=== PATIENT | female | born 1980 | race African-American/Black ===

== ENCOUNTER 2018-04-30 09:30 | Emergency (ER) | payer OTHER | END 2018-04-30 10:38 | disposition home or self-care (01) | LOC: ER 10:38 | DX: S16.1XXA Strain of muscle, fascia and tendon at neck level, initial encounter (principal); M25.512 Pain in left shoulder; V49.49XA Driver injured in collision with other motor vehicles in traffic accident, initial encounter; Y93.89 Activity, other specified; Y99.8 Other external cause status; Y92.89 Other specified places as the place of occurrence of the external cause | CPT/HCPCS: 99283 ==

== ENCOUNTER 2019-03-26 17:40 | Emergency (ER) | payer OTHER ==
[~2019-03-26] VITALS: Ht 157.5 cm; Wt 57.2 kg
[~2019-03-26 17:40] MED LIST: CYCL10TA2 PO; METH4TAB2 PO; NAPR500T8 PO
[2019-03-26 18:06] VITALS: BP 124/49
[2019-03-26] MEDS ORDERED: HYDR-3164 PO (18:33)
[2019-03-26] MEDS ORDERED: HYDROcodone/APAP 5/325MG 1 TAB TABLET PO ONE (18:45)
[2019-03-26 20:07] LABS: BILIRUBIN,URINE NEGATIVE (NEG); CLARITY,URINE CLEAR; COLOR,URINE YELLOW; NITRITE,URINE NEGATIVE (NEG); PROTEIN,URINE NEGATIVE (NEG-TRACE); UROBILINOGEN,URINE 0.2 mg/dL (0.2 mg/dL)
[2019-03-26 20:16] LABS: BACTERIA,URINE MODERATE /HPF (0-FEW); RBC,URINE 0 /HPF (0-2); SQUAMOUS EPITHELIAL CELL,UR MANY /LPF; TRICHOMONAS,URINE PRESENT
--- NOTE | 2019-03-27 04:45 | PHYS DOC ---
Past Medical History Past Medical History: Diabetes-Type II Past Surgical History: No Surgical History Alcohol Use: None Drug Use: None Adult General Chief Complaint Chief Complaint: BACK PAIN - NO INJURY HPI HPI Patient is a 38 year old female presents with low back pain. She's had for a few days it is worse now is mostly in the mid back it radiates around to the right groin region and down to her right posterior knee area sometimes feels it down into her calf as well no trauma has had issues with back pain for over a year now but seemed to get worse over the last few days no dysuria denies abdominal pain. Denies fever by history. Denies drug use Review of Systems Review of Systems Constitutional: Denies fever or chills [] Eyes: Denies change in visual acuity, redness, or eye pain [] HENT: Denies nasal congestion or sore throat [] Respiratory: Denies cough or shortness of breath [] Cardiovascular: No additional information not addressed in HPI [] GI: Denies abdominal pain, nausea, vomiting, bloody stools or diarrhea [] Neurologic: Denies headache, focal weakness or sensory changes [] Endocrine: Denies polyuria or polydipsia [] All other systems were reviewed and found to be within normal limits, except as documented in this note. Current Medications Current Medications Current Medications Medications (Trade) Dose Ordered Sig/Rasheed Start Time Stop Time Status Last Admin Dose Admin Acetaminophen/ Hydrocodone Bitart (Lortab 5/325) 1 tab 1X ONCE 03/26/19 18:45 03/26/19 18:46 DC 03/26/19 18:37 1 TAB Allergies Allergies Allergies Coded Allergies Type Severity Reaction Last Updated Verified No Known Drug Allergies 04/30/18 No Physical Exam Physical Exam Constitutional: Well developed, well nourished, no acute distress, non-toxic appearance. [] HENT: Normocephalic, atraumatic, bilateral external ears normal, oropharynx moist, no oral exudates, nose normal. [] Eyes: PERRLA, EOMI, conjunctiva normal, no discharge. [] Neck: Normal range of motion, no tenderness, supple, no stridor. [] Pulmonary: Normal respiratory effort no increased work of breathing no obvious chest wall trauma Abdomen: Bowel sounds normal, soft, no tenderness, no masses, no pulsatile masses. [] Skin: Warm, dry, no erythema, no rash. [] Back: There is tenderness to palpation in the mid back and a diffuse sort of bandlike pattern around L5-S1 no focal midline bony tenderness, diffuse overall. Extremities: No tenderness, no cyanosis, no clubbing, ROM intact, no edema. [] Neurologic: Alert and oriented X 3, normal motor function, normal sensory function, no focal deficits noted. [] Psychologic: Affect normal, judgement normal, mood normal. [] Current Patient Data Vital Signs Vital Signs Date Time Temp Pulse Resp B/P (MAP) Pulse Ox O2 Delivery O2 Flow Rate FiO2 03/26/19 18:06 100.9 84 16 124/49 (74) 98 Room Air 100.9 Lab Values Laboratory Tests Test 03/26/19 19:00 03/26/19 19:03 Urine Collection Type Clean catch Urine Color Yellow Urine Clarity Clear Urine pH 6.0 Urine Specific [place] 1.015 Urine Protein Negative mg/dL (NEG-TRACE) Urine Glucose (UA) Negative mg/dL (NEG) Urine Ketones (Stick) Negative mg/dL (NEG) Urine Blood Negative (NEG) Urine Nitrite Negative (NEG) Urine Bilirubin Negative (NEG) Urine Urobilinogen Dipstick 0.2 mg/dL (0.2 mg/dL) Urine Leukocyte Esterase Moderate (NEG) Urine RBC 0 /HPF (0-2) Urine WBC 5-10 /HPF (0-4) Urine Squamous Epithelial Cells Many /LPF Urine Bacteria Moderate /HPF (0-FEW) Urine Mucus Marked /LPF Urine Trichomonas Present POC Urine HCG, Qualitative Hcg negative (Negative) Microbiology 03/26/19 Urine Culture - Final, Complete 03/26/19 Urine Culture Result 1 (SHMUEL) - Final, Complete EKG EKG [] Radiology/Procedures Radiology/Procedures [] Course & Med Decision Making Course & Med Decision Making Pertinent Labs and Imaging studies reviewed. (See chart for details) []38-year-old female not presenting with low back pain, noted fever as well. Most likely musculoskeletal as there is radiation down the right posterior thigh and also reproducibility on examination clinically. NO SIGNS of cauda equina. Patient noted to have Trichomonas and possible UTI on urinalysis that actually resulted after she left the department. i also later noted the fever on full review of patients chart, she had unfortunately left the department at that time. I called the patient at 10 PM and i asked her to call me back in the emergency room. As of this dictation at 4:40 AM she has not called back. I have asked the nurse manager retention deyvi to call this patient back preferably for re- evaluation. Lyndaon Disclaimer Lyndaon Disclaimer This electronic medical record was generated, in whole or in part, using a voice recognition dictation system. Departure Departure Impression: Primary Impression: Back pain Disposition: HOME, SELF-CARE Condition: STABLE Patient Instructions: Back Pain, Adult, [id number] Scripts Hydrocodone/Apap 5-325 (NORCO 5-325 TABLET) 1 Each Tablet 1-2 EACH PO PRN Q6HRS PRN for PAIN, #8 as needed for pain Prov: YAMIL COURTNEY MD 03/26/19 YAMIL COURTNEY MD March 27, 2019 04:45
[2019-04-24] MEDS ORDERED: SENN-87 PO (08:14)
== END 2019-03-26 19:15 | disposition home or self-care (01) ==
LOC: ER 17:40
DX: M54.5 Low back pain (principal); E11.9 Type 2 diabetes mellitus without complications
CPT/HCPCS: 81001; 81025; 87086; 99284

== ENCOUNTER 2019-04-13 15:15 | Emergency (ER) | payer OTHER ==
[~2019-04-13] VITALS: Ht 157.5 cm; Wt 56.7 kg
[~2019-04-13 15:15] MED LIST changes: +HYDR-3164 PO
[2019-04-13 15:25] VITALS: BP 144/83
[2019-04-13] MEDS ORDERED: DIAZ5TAB PO (15:39)
[2019-04-13] MEDS ORDERED: DICL50TA2 PO (15:39)
--- NOTE | 2019-04-13 15:40 | PHYS DOC ---
Past Medical History Past Medical History: Diabetes-Type II Past Surgical History: No Surgical History Alcohol Use: None Drug Use: None Adult General Chief Complaint Chief Complaint: LOWER EXT PAIN HPI HPI Patient is a 38 year old female who presents to the ED today complaining of 10 out of 10 right low back pain radiating to the right lower extremity that has been going on intermittently for 1 month with spasms to the low back. Patient denies any known injury. She states occasionally she gets this numbness on the right toes. Patient denies any loss of bowel bladder function. Denies any chance she is . She states she has an appointment with her own doctor tomorrow morning. Patient states her pain is worsened when she is sitting on her buttocks. She states standing up sometimes relieves the pain. Review of Systems Review of Systems Constitutional: Denies fever or chills [] GI: Denies abdominal pain, nausea, vomiting, bloody stools or diarrhea [] : Denies dysuria or hematuria [] Musculoskeletal: Reports right low back pain radiating to the right lower extremity. Integument: Denies rash or skin lesions [] Neurologic: Denies headache, focal weakness or sensory changes [] All other systems were reviewed and found to be within normal limits, except as documented in this note. Allergies Allergies Allergies Coded Allergies Type Severity Reaction Last Updated Verified No Known Drug Allergies 04/30/18 No Physical Exam Physical Exam Constitutional: Well developed, well nourished, no acute distress, non-toxic appearance. [] HENT: Normocephalic, atraumatic, bilateral external ears normal, oropharynx moist, no oral exudates, nose normal. [] Eyes: PERRLA, EOMI, conjunctiva normal, no discharge. [] Neck: Normal range of motion, no tenderness, supple, no stridor. [] Cardiovascular:Heart rate regular rhythm, no murmur [] Lungs & Thorax: Bilateral breath sounds clear to auscultation [] Abdomen: Bowel sounds normal, soft, no tenderness, no masses, no pulsatile masses. [] Skin: Warm, dry, no erythema, no rash. [] Back: Tenderness on palpation of the right lumbar spine worse on the right SI joint, no midline lumbar spine tenderness, no CVA tenderness. Positive straight leg raises to bilateral lower extremities at approximately 45 worse on the right side. Extremities: No tenderness, no cyanosis, no clubbing, ROM intact, no edema. [] Neurologic: Alert and oriented X 3, normal motor function, normal sensory function, no focal deficits noted. [] Psychologic: Affect normal, judgement normal, mood normal. [] EKG EKG [] Radiology/Procedures Radiology/Procedures [] Course & Med Decision Making Course & Med Decision Making Pertinent Labs and Imaging studies reviewed. (See chart for details) This is a 38-year-old female patient with known history of sciatica presented to the ED today with physical exam consistent of sciatica. No known injury. No cauda equina syndrome symptoms. Patient has an appointment with her PCP tomorrow morning. Will be given Toradol and Solu-Medrol IM in the ED. Will be discharged with Valium and naproxen. Follow-up with PCP tomorrow morning. Dragon Disclaimer Dragon Disclaimer This electronic medical record was generated, in whole or in part, using a voice recognition dictation system. Departure Departure Impression: Primary Impression: Back pain Additional Impression: Sciatica of right side Disposition: 01 HOME, SELF-CARE Condition: STABLE Referrals: DAVE ESPINOSA MD (PCP) Follow-up tomorrow as scheduled Patient Instructions: Back Pain, Adult, Sciatica Additional Instructions: You were evaluated in the emergency room for low back pain with sciatica. Take the prescribed medications as ordered. Follow-up with your doctor tomorrow as scheduled. Scripts Diazepam (VALIUM) 5 Mg Tablet 5 MG PO TID, #9 TAB Prov: MONTRELL TOBAR APRN 04/13/19 Diclofenac Potassium (DICLOFENAC POTASSIUM) 50 Mg Tablet 1 TAB PO BID, #20 TAB 0 Refills Prov: MONTRELL TOBAR APRN 04/13/19 Problem Qualifiers Primary Impression: Back pain Back pain location: low back pain Chronicity: chronic Back pain latera lity: right Sciatica presence: with sciatica Sciatica laterality: sciat ica of right side Qualified Codes: M54.41 - Lumbago with sciatica, right side; G89.29 - Other chronic pain MONTRELL TOBAR APRN April 13, 2019 15:40
[2019-04-13] MEDS ORDERED: methylPREDNISolone SOD SUCC PF 125 MG/2 ML VIAL. IM ONE (15:45)
[2019-04-13] MEDS ORDERED: KETOROLAC 60 MG/2 ML VIAL. IM ONE (15:45)
[2019-04-24] MEDS ORDERED: SENN-87 PO (08:14)
== END 2019-04-13 16:00 | disposition home or self-care (01) ==
LOC: ER 15:15
DX: M54.41 Lumbago with sciatica, right side (principal); G89.29 Other chronic pain; E11.9 Type 2 diabetes mellitus without complications
CPT/HCPCS: 96372; 99284; J1885; J2930

== ENCOUNTER 2019-04-21 11:56 | Inpatient (IN) | payer OTHER ==
[~2019-04-21] VITALS: Ht 157.5 cm; Wt 53.1 kg
[~2019-04-21 11:56] MED LIST changes: +DIAZ5TAB PO; +DICL50TA2 PO
[2019-04-21] MEDS ORDERED: KETOROLAC 30 MG/ML VIAL. IV ONE (12:45)
--- NOTE | 2019-04-21 12:49 | PHYS DOC ---
Past Medical History Past Medical History: Diabetes-Type II, Other Additional Past Medical Histor: SICKLE CELL TRAIT Past Surgical History: No Surgical History Alcohol Use: None Drug Use: None Adult General Chief Complaint Chief Complaint: LOWER BACK PAIN OR INJURY [facility] Patient is a 38 year old female who presents with complaining of low back pain. Patient complaining of constant low back pain for the last one month without injury as a sharp pain with radiation to the posterior right thigh and associated with numbness in lateral side of leg. Patient states the pain getting worse with movement and bending over. Patient denies focal weakness, fever and chills, urinary symptoms, abdominal pain, vaginal bleeding or discharge or . The patient was seen twice in this emergency room and by her primary care physician without improvement of her pain patient seen by her doctor today and sent to ER for admission. Review of Systems Review of Systems Constitutional: Denies fever or chills [] Eyes: Denies change in visual acuity, redness, or eye pain [] HENT: Denies nasal congestion or sore throat [] Respiratory: Denies cough or shortness of breath [] Cardiovascular: No additional information not addressed in HPI [] GI: Denies abdominal pain, nausea, vomiting, bloody stools or diarrhea [] : Denies dysuria or hematuria [] Musculoskeletal: Reports back pain, denies joint pain [] Integument: Denies rash or skin lesions [] Neurologic: Denies headache, focal weakness or sensory changes [] Endocrine: Denies polyuria or polydipsia [] All other systems were reviewed and found to be within normal limits, except as documented in this note. Allergies Allergies Allergies Coded Allergies Type Severity Reaction Last Updated Verified No Known Drug Allergies 04/30/18 No Physical Exam Physical Exam Constitutional: Well developed, well nourished, mild, non-toxic appearance. [] HENT: Normocephalic, atraumatic. Eyes: PERRLA, EOMI, conjunctiva normal, no discharge. [] Neck: Normal range of motion, no tenderness, supple, no stridor. [] Cardiovascular:Heart rate regular rhythm, no murmur [] Lungs & Thorax: Bilateral breath sounds clear to auscultation [] Abdomen: Bowel sounds normal, soft, no tenderness, no masses, no pulsatile masses. [] Skin: Warm, dry, no erythema, no rash. [] Back: No midline tenderness, right paraspinal muscle spasm, no CVA tenderness. [] Extremities: No tenderness, no cyanosis, no clubbing, ROM intact, no edema. [] Neurologic: Alert and oriented X 3, normal motor function, decrease of sensation in lateral side of right lower leg, no focal deficits noted. [] Psychologic: Affect normal, judgement normal, mood normal. [] EKG EKG [] Radiology/Procedures Radiology/Procedures [facility] [address] [place] [address] IMAGING REPORT Signed PATIENT: ISIDRA PATRICK ACCOUNT: [id number] : 1980 LOCATION: [address] [place] [address] AGE: 38 SEX: F EXAM STATUS: ADM IN ORD. PHYSICIAN: ANTONI WALDEN MD REASON: low back pain PROCEDURE: CT LUMBAR SPINE WO CONTRAST CT LUMBAR SPINE WO CONTRAST Indication: Low back pain Technique: Noncontrast CT imaging was performed of the , multiplanar reconstruction images submitted. One or more of the following individualized dose reduction techniques were utilized for this examination: 1. Automated exposure control 2. Adjustment of the mA and/or kV according to patient size 3. Use of iterative reconstruction technique. Comparison: None Findings: Lumbar vertebral body stature and AP alignment are maintained. Intervertebral disc spaces are adequate. No acute lumbar spine fracture is identified. There is protrusion and possible small extrusion extending slightly below the L5-S1 intervertebral disc space in the right lateral recess estimated about 4 to 5 mm AP with contact of the descending right S1 nerve root. Neural foramina are not significantly narrowed. IMPRESSION: 1. No acute lumbar spine fracture is identified. 2. There is protrusion and possible small extrusion eccentric to the right lateral recess at L5-S1 contacting the descending right S1 nerve root. Electronically signed by: Nimisha Wolfe MD (04/21/2019 4:22 PM) [id number] DICTATED and SIGNED BY: NIMISHA WOLFE MD DATE: 04/21/19 1628 Course & Med Decision Making Course & Med Decision Making Pertinent Labs and Imaging studies reviewed. (See chart for details) Patient requiring admission for further evaluation and treatment. Discussed with Dr. Falcon who is in agreement with admission. Discussed findings and plan with patient and family, who acknowledge understanding and agreement. Dragon Disclaimer Dragon Disclaimer This electronic medical record was generated, in whole or in part, using a voice recognition dictation system. Departure Departure Impression: Primary Impression: Sciatica of right side Disposition: 09 ADMITTED INPATIENT Admitting Physician: Karsten Falcon Condition: IMPROVED Referrals: KARSTEN FALCON MD (PCP) ANTONI WALDEN MD April 21, 2019 12:48
[2019-04-21 12:55] LABS: BILIRUBIN,URINE NEGATIVE (NEG); CLARITY,URINE CLEAR; COLOR,URINE YELLOW; NITRITE,URINE NEGATIVE (NEG); PH,URINE 5.5; PROTEIN,URINE NEGATIVE (NEG-TRACE); UROBILINOGEN,URINE 0.2 mg/dL (0.2 mg/dL)
[2019-04-21 13:13] LABS: HYALINE CASTS, URINE MODERATE /HPF; SQUAMOUS EPITHELIAL CELL,UR MANY /LPF
[2019-04-21 13:14] LABS: BACTERIA,URINE MODERATE /HPF (0-FEW); RBC,URINE 0 /HPF (0-2)
[2019-04-21 13:15] LABS: BASO % 0 % (0-3); EOS % 0 % (0-3); HEMATOCRIT 37.4 % (36.0-47.0); HEMOGLOBIN 11.9 g/dL (12.0-15.5); LYMPH # 1.4 x10^3/uL (1.0-4.8); LYMPH % 8 % (24-48); MEAN CORPUSCULAR HEMOGLOBIN 24 pg (25-35); MEAN CORPUSCULAR HGB CONC 32 g/dL (31-37); MEAN CORPUSCULAR VOLUME 75 fL (79-100); MONO # 0.8 x10^3/uL (0.0-1.1); MONO % 4 % (0-9); NEUT # 15.7 x10^3uL (1.8-7.7); NEUT % 88 % (31-73); PLATELET COUNT 417 x10^3/uL (140-400); RED BLOOD COUNT 4.96 x10^6/uL (3.50-5.40); RED CELL DISTRIBUTION WIDTH 19.2 % (11.5-14.5)
[2019-04-21 13:17] LABS: CALCIUM 9.7 mg/dL (8.5-10.1); CREATININE 0.8 mg/dL (0.6-1.0); GFR 97.1; POTASSIUM 3.5 mmol/L (3.5-5.1)
[2019-04-21 13:23] LABS: ALBUMIN 4.2 g/dL (3.4-5.0); ALBUMIN/GLOBULIN RATIO 1.1 (1.0-1.7); TOTAL BILIRUBIN 0.3 mg/dL (0.2-1.0); TOTAL PROTEIN 7.9 g/dL (6.4-8.2)
[2019-04-21 14:22] VITALS: BP 140/86
[2019-04-21] MEDS ORDERED: METF500T16 PO (14:22)
[2019-04-21 15:32] LABS: % LYMPHS 16 % (24-48); % MONOS 3 % (0-10); % SEGS 81 % (35-66)
[2019-04-21 15:34] LABS: PLT ESTIMATE ADEQUATE (ADEQUATE)
--- NOTE | 2019-04-21 16:24 | RAD ---
CT LUMBAR SPINE WO CONTRAST Indication: Low back pain Technique: Noncontrast CT imaging was performed of the , multiplanar reconstruction images submitted. One or more of the following individualized dose reduction techniques were utilized for this examination: 1. Automated exposure control 2. Adjustment of the mA and/or kV according to patient size 3. Use of iterative reconstruction technique. Comparison: None Findings: Lumbar vertebral body stature and AP alignment are maintained. Intervertebral disc spaces are adequate. No acute lumbar spine fracture is identified. There is protrusion and possible small extrusion extending slightly below the L5-S1 intervertebral disc space in the right lateral recess estimated about 4 to 5 mm AP with contact of the descending right S1 nerve root. Neural foramina are not significantly narrowed. IMPRESSION: 1. No acute lumbar spine fracture is identified. 2. There is protrusion and possible small extrusion eccentric to the right lateral recess at L5-S1 contacting the descending right S1 nerve root. Electronically signed by: Raj Wolfe MD (04/21/2019 4:22 PM) [id number]
[2019-04-21] MEDS ORDERED: SENNOSIDES 8.6 MG TABLET PO PRN (16:45)
[2019-04-21] MEDS: metFORMIN 500 MG TABLET PO SCH (17:00)
[2019-04-21] MEDS: MORPHINE SULFATE 2 MG/ML VIAL. IV PRN ×2 (17:01→21:34)
[2019-04-21 19:00] VITALS: BP 127/79
[2019-04-21] MEDS: DICLOFENAC SODIUM 25 MG TABLET.DR PO SCH (21:34)
[2019-04-21 22:29] VITALS: BP 132/86
[2019-04-22] MEDS: MORPHINE SULFATE 2 MG/ML VIAL. IV PRN ×3 (02:24→13:00)
[2019-04-22 02:51] VITALS: BP 151/89
[2019-04-22 07:00] VITALS: BP 118/82
[2019-04-22] MEDS: oxyCODONE/APAP 5/325 1 TAB TABLET PO PRN ×2 (08:21→16:45)
[2019-04-22] MEDS: CYCLOBENZAPRINE 10 MG TABLET. PO PRN (08:22)
[2019-04-22] MEDS: metFORMIN 500 MG TABLET PO SCH ×2 (08:22→17:34)
[2019-04-22] MEDS: DICLOFENAC SODIUM 25 MG TABLET.DR PO SCH ×2 (08:23→20:46)
--- NOTE | 2019-04-22 10:25 | PDOC1 ---
History and Physical Date of Admission Date of Admission 04/21/19 Identification/Chief Complaint Chief Complaint Back pain Source Source: Patient History of Present Illness History of Present Illness Pt has been to the ER minimum of 4 different times over the past month for worsening back pain. Pt states that the pain started around the 3rd week of February. No injury or inciting event that she can remember. Noticed that she had some numbness and tingling down the side of her right thigh and into her last 3 toes on the right side. When she came and saw me the week of March she thought it was getting better. Then came in last week in excruciating pain. Xrays were ordered in clinic which were normal and told to f/u this week. Pt presented to clinic yesterday accompanied by her . He stated that she lays in bed all day crying and he was very concerned. Pt having to use a cane to get around. She has weakness in the right ankle. Right groin pain for the past 3 days. Constipated Past Medical History Cardiovascular: No pertinent hx Pulmonary: No pertinent hx GI: No pertinent hx Heme/Onc: No pertinent hx Hepatobiliary: No pertinent hx Psych: No pertinent hx Rheumatologic: No pertinent hx Infectious disease: No pertinent hx ENT: No pertinent hx Renal/: No pertinent hx Endocrine: Diabetes Dermatology: No pertinent hx Past Surgical History Past Surgical History: No pertinent history Family History Family History: Diabetes, Hypertension Social History Smoke: No ALCOHOL: none Drugs: None Current Problem List Problem List Problems Medical Problems: (1) Sciatica of right side Status: Acute Current Medications Current Medications Current Medications Medications (Trade) Dose Ordered Sig/Rasheed Start Time Stop Time Status Last Admin Dose Admin Cyclobenzaprine HCl (Flexeril) 5 mg PRN TID PRN 04/21/19 16:45 04/22/19 08:22 5 MG Diclofenac Sodium (Voltaren) 50 mg BID 04/21/19 21:00 04/22/19 08:23 50 MG Ketorolac Tromethamine (Toradol 30mg Vial) 30 mg 1X ONCE 04/21/19 12:45 04/21/19 12:46 DC 04/21/19 13:17 30 MG Metformin HCl (Glucophage) 500 mg BIDWMEALS 04/21/19 17:00 04/22/19 08:22 500 MG Morphine Sulfate (Morphine Sulfate) 2 mg PRN Q2HR PRN 04/21/19 16:45 04/22/19 08:21 2 MG Oxycodone/ Acetaminophen (Percocet 5/325) 1 tab PRN Q6HRS PRN 04/21/19 16:45 04/22/19 08:21 1 TAB Sennosides (Senna) 8.6 mg PRN BID PRN 04/21/19 16:45 Allergies Allergies Allergies Coded Allergies Type Severity Reaction Last Updated Verified No Known Drug Allergies 04/30/18 No ROS Review of System CONSTITUTIONAL: No fever or chills EYES: No recent changes SKIN: No rash or itching CARDIOVASCULAR: No chest pain, syncope, palpitations, or edema RESPIRATORY: No SOB or cough GASTROINTESTINAL: No nausea, vomiting or abdominal pain, +constipation from pain medication NEUROLOGICAL: No headaches, see HPI ENDOCRINE: No cold or heat intolerance GENITOURINARY: No urgency or frequency of urination MUSCULOSKELETAL: See HPI LYMPHATICS: No enlarged lymph nodes PSYCHIATRIC: No anxiety or depression Physical Exam Physical Exam GEN.: No apparent distress. Alert and oriented. HEENT: Head is normocephalic, atraumatic NECK: Supple. LUNGS: Clear to auscultation. HEART: RRR, S1, S2 present. Peripheral pulses intact ABDOMEN: Soft, mild RLQ tenderness. Positive bowel sounds. EXTREMITIES: Without any cyanosis. NEUROLOGIC: Normal speech, normal tone PSYCHIATRIC: Normal affect, normal mood. SKIN: No ulcerations Vitals Vitals Vital Signs Date Time Temp Pulse Resp B/P (MAP) Pulse Ox O2 Delivery O2 Flow Rate FiO2 04/22/19 08:21 20 Room Air 04/22/19 07:00 97.9 86 118/82 (94) 100 97.9 Labs Labs Laboratory Tests Test 04/21/19 12:34 04/21/19 12:37 04/21/19 12:55 04/21/19 16:52 Urine Collection Type Unknown Urine Color Yellow Urine Clarity Clear Urine pH 5.5 Urine Specific [place] 1.025 Urine Protein Negative mg/dL (NEG-TRACE) Urine Glucose (UA) Negative mg/dL (NEG) Urine Ketones (Stick) Negative mg/dL (NEG) Urine Blood Negative (NEG) Urine Nitrite Negative (NEG) Urine Bilirubin Negative (NEG) Urine Urobilinogen Dipstick 0.2 mg/dL (0.2 mg/dL) Urine Leukocyte Esterase Negative (NEG) Urine RBC 0 /HPF (0-2) Urine WBC 1-4 /HPF (0-4) Urine Squamous Epithelial Cells Many /LPF Urine Bacteria Moderate /HPF (0-FEW) Urine Hyaline Casts Moderate /HPF Urine Mucus Marked /LPF Bedside Urine HCG, Qualitative Hcg negative (Negative) White Blood Count 18.0 x10^3/uL (4.0-11.0) Red Blood Count 4.96 x10^6/uL (3.50-5.40) Hemoglobin 11.9 g/dL (12.0-15.5) Hematocrit 37.4 % (36.0-47.0) Mean Corpuscular Volume 75 fL (79-100) Mean Corpuscular Hemoglobin 24 pg (25-35) Mean Corpuscular Hemoglobin Concent 32 g/dL (31-37) Red Cell Distribution Width 19.2 % (11.5-14.5) Platelet Count 417 x10^3/uL (140-400) Neutrophils (%) (Auto) 88 % (31-73) Lymphocytes (%) (Auto) 8 % (24-48) Monocytes (%) (Auto) 4 % (0-9) Eosinophils (%) (Auto) 0 % (0-3) Basophils (%) (Auto) 0 % (0-3) Neutrophils # (Auto) 15.7 x10^3uL (1.8-7.7) Lymphocytes # (Auto) 1.4 x10^3/uL (1.0-4.8) Monocytes # (Auto) 0.8 x10^3/uL (0.0-1.1) Eosinophils # (Auto) 0.0 x10^3/uL (0.0-0.7) Basophils # (Auto) 0.0 x10^3/uL (0.0-0.2) Segmented Neutrophils % 81 % (35-66) Lymphocytes % 16 % (24-48) Monocytes % 3 % (0-10) Platelet Estimate Adequate (ADEQUATE) Large Platelets Few Sodium Level 142 mmol/L (136-145) Potassium Level 3.5 mmol/L (3.5-5.1) Chloride Level 104 mmol/L (98-107) Carbon Dioxide Level 25 mmol/L (21-32) Anion Gap 13 (6-14) Blood Urea Nitrogen 15 mg/dL (7-20) Creatinine 0.8 mg/dL (0.6-1.0) Estimated GFR (Cockcroft-Gault) 97.1 BUN/Creatinine Ratio 19 (6-20) Glucose Level 142 mg/dL (70-99) Calcium Level 9.7 mg/dL (8.5-10.1) Total Bilirubin 0.3 mg/dL (0.2-1.0) Aspartate Amino Transf (AST/SGOT) 10 U/L (15-37) Alanine Aminotransferase (ALT/SGPT) 16 U/L (14-59) Alkaline Phosphatase 49 U/L (46-116) Total Protein 7.9 g/dL (6.4-8.2) Albumin 4.2 g/dL (3.4-5.0) Albumin/Globulin Ratio 1.1 (1.0-1.7) Glucose (Fingerstick) 215 mg/dL (70-99) Test 04/21/19 21:01 04/22/19 07:32 Glucose (Fingerstick) 148 mg/dL (70-99) 106 mg/dL (70-99) Laboratory Tests Test 04/21/19 12:34 04/21/19 12:37 04/21/19 12:55 04/21/19 16:52 Urine Collection Type Unknown Urine Color Yellow Urine Clarity Clear Urine pH 5.5 Urine Specific [place] 1.025 Urine Protein Negative mg/dL (NEG-TRACE) Urine Glucose (UA) Negative mg/dL (NEG) Urine Ketones (Stick) Negative mg/dL (NEG) Urine Blood Negative (NEG) Urine Nitrite Negative (NEG) Urine Bilirubin Negative (NEG) Urine Urobilinogen Dipstick 0.2 mg/dL (0.2 mg/dL) Urine Leukocyte Esterase Negative (NEG) Urine RBC 0 /HPF (0-2) Urine WBC 1-4 /HPF (0-4) Urine Squamous Epithelial Cells Many /LPF Urine Bacteria Moderate /HPF (0-FEW) Urine Hyaline Casts Moderate /HPF Urine Mucus Marked /LPF Bedside Urine HCG, Qualitative Hcg negative (Negative) White Blood Count 18.0 x10^3/uL (4.0-11.0) Red Blood Count 4.96 x10^6/uL (3.50-5.40) Hemoglobin 11.9 g/dL (12.0-15.5) Hematocrit 37.4 % (36.0-47.0) Mean Corpuscular Volume 75 fL (79-100) Mean Corpuscular Hemoglobin 24 pg (25-35) Mean Corpuscular Hemoglobin Concent 32 g/dL (31-37) Red Cell Distribution Width 19.2 % (11.5-14.5) Platelet Count 417 x10^3/uL (140-400) Neutrophils (%) (Auto) 88 % (31-73) Lymphocytes (%) (Auto) 8 % (24-48) Monocytes (%) (Auto) 4 % (0-9) Eosinophils (%) (Auto) 0 % (0-3) Basophils (%) (Auto) 0 % (0-3) Neutrophils # (Auto) 15.7 x10^3uL (1.8-7.7) Lymphocytes # (Auto) 1.4 x10^3/uL (1.0-4.8) Monocytes # (Auto) 0.8 x10^3/uL (0.0-1.1) Eosinophils # (Auto) 0.0 x10^3/uL (0.0-0.7) Basophils # (Auto) 0.0 x10^3/uL (0.0-0.2) Segmented Neutrophils % 81 % (35-66) Lymphocytes % 16 % (24-48) Monocytes % 3 % (0-10) Platelet Estimate Adequate (ADEQUATE) Large Platelets Few Sodium Level 142 mmol/L (136-145) Potassium Level 3.5 mmol/L (3.5-5.1) Chloride Level 104 mmol/L (98-107) Carbon Dioxide Level 25 mmol/L (21-32) Anion Gap 13 (6-14) Blood Urea Nitrogen 15 mg/dL (7-20) Creatinine 0.8 mg/dL (0.6-1.0) Estimated GFR (Cockcroft-Gault) 97.1 BUN/Creatinine Ratio 19 (6-20) Glucose Level 142 mg/dL (70-99) Calcium Level 9.7 mg/dL (8.5-10.1) Total Bilirubin 0.3 mg/dL (0.2-1.0) Aspartate Amino Transf (AST/SGOT) 10 U/L (15-37) Alanine Aminotransferase (ALT/SGPT) 16 U/L (14-59) Alkaline Phosphatase 49 U/L (46-116) Total Protein 7.9 g/dL (6.4-8.2) Albumin 4.2 g/dL (3.4-5.0) Albumin/Globulin Ratio 1.1 (1.0-1.7) Glucose (Fingerstick) 215 mg/dL (70-99) Test 04/21/19 21:01 04/22/19 07:32 Glucose (Fingerstick) 148 mg/dL (70-99) 106 mg/dL (70-99) VTE Prophylaxis Ordered VTE Prophylaxis Devices: Yes VTE Pharmacological Prophylaxi: No Assessment/Plan Assessment/Plan Pt is a 38yo AAF admitted for intractable back pain with constant numbness in right toes 3-5 1)Lumbago with sciatica- pain improved with IV Pain medication. CT shows protrusion eccentric to right lateral recess at L5-S1 contacting descending right S1 nerve root. Numbness is constant in right 3 toes, has weakness in right ankle. Pain mgmt consulted, PT/OT consulted 2)Leukocytosis- pt recently treated with steroid in ER. Will CTM. Afebrile and no symptoms of infection 3)Anemia- mild, no active bleeding 4)Thrombocytosis- likely 2/2 steroids and stress reaction, CTM 5)DM2- previously well controlled, currently exacerbated by steroids. Pt continued on Metformin 500mg qday. HbA1C pending 6)Abnormal U/A- likely just not clean catch. Pt asymptomatic. Culture pending DAVE ESPINOSA MD Apr 22, 2019 10:25
[2019-04-22 11:00] VITALS: BP 129/85
[2019-04-22] MEDS: SENNOSIDES 8.6 MG TABLET PO SCH ×2 (12:58→20:45)
[2019-04-22 15:00] VITALS: BP 132/89
[2019-04-22 19:00] VITALS: BP 114/65
[2019-04-22 23:00] VITALS: BP 117/58
[2019-04-23] MEDS: oxyCODONE/APAP 5/325 1 TAB TABLET PO PRN ×4 (00:21→19:33)
[2019-04-23 03:00] VITALS: BP 115/68
[2019-04-23] MEDS: CYCLOBENZAPRINE 10 MG TABLET. PO PRN ×2 (06:01→20:26)
[2019-04-23 06:13] LABS: BASO # 0.1 x10^3/uL (0.0-0.2); BASO % 1 % (0-3); EOS # 0.3 x10^3/uL (0.0-0.7); EOS % 2 % (0-3); HEMATOCRIT 37.6 % (36.0-47.0); HEMOGLOBIN 12.4 g/dL (12.0-15.5); LYMPH # 3.9 x10^3/uL (1.0-4.8); LYMPH % 33 % (24-48); MEAN CORPUSCULAR HEMOGLOBIN 25 pg (25-35); MEAN CORPUSCULAR HGB CONC 33 g/dL (31-37); MEAN CORPUSCULAR VOLUME 75 fL (79-100); MONO # 1.1 x10^3/uL (0.0-1.1); MONO % 9 % (0-9); NEUT # 6.6 x10^3uL (1.8-7.7); NEUT % 56 % (31-73); PLATELET COUNT 406 x10^3/uL (140-400); RED BLOOD COUNT 5.01 x10^6/uL (3.50-5.40); RED CELL DISTRIBUTION WIDTH 19.6 % (11.5-14.5); WHITE BLOOD COUNT 11.8 x10^3/uL (4.0-11.0)
[2019-04-23 07:00] VITALS: BP 124/73
[2019-04-23] MEDS: DICLOFENAC SODIUM 25 MG TABLET.DR PO SCH ×2 (07:48→20:26)
[2019-04-23] MEDS: metFORMIN 500 MG TABLET PO SCH (07:49)
[2019-04-23] MEDS: SENNOSIDES 8.6 MG TABLET PO SCH ×2 (07:49→21:00)
[2019-04-23 11:00] VITALS: BP 118/73
--- NOTE | 2019-04-23 11:36 | PDOC ---
SUBJECTIVE Subjective Pt states that the pain has slightly improved. Numbness is still there but feels slightly improved this morning. Had a BM this morning OBJECTIVE Vital Signs Vital Signs Date Time Temp Pulse Resp B/P (MAP) Pulse Ox O2 Delivery O2 Flow Rate FiO2 04/23/19 11:00 98.4 89 12 118/73 (88) 99 Room Air 98.4 04/23/19 08:00 Room Air 04/23/19 07:04 100 Room Air 04/23/19 07:00 98.0 88 12 124/73 (90) 100 98.0 04/23/19 06:01 100 Room Air 04/23/19 03:00 97.7 86 18 115/68 (84) 100 Room Air 97.7 04/23/19 00:21 100 Room Air 04/22/19 23:00 98.2 94 18 117/58 (77) 100 Room Air 98.2 04/22/19 20:00 Room Air 04/22/19 19:00 98.2 86 18 114/65 (81) 100 Room Air 98.2 04/22/19 16:45 Room Air 04/22/19 15:00 98.4 95 20 132/89 (103) 100 Room Air 98.4 04/22/19 13:30 20 Room Air 04/22/19 13:00 20 Room Air I & O Intake and Output 04/23/19 07:00 Intake Total 1200 ml Balance 1200 ml Intake Oral 1200 ml # Voids 7 PHYSICAL EXAM Physical Exam GEN.: No apparent distress. Alert and oriented. HEENT: Head is normocephalic, atraumatic NECK: Supple. LUNGS: Clear to auscultation. HEART: RRR, S1, S2 present. Peripheral pulses intact ABDOMEN: Soft, mild RLQ tenderness. Positive bowel sounds. EXTREMITIES: Without any cyanosis. NEUROLOGIC: Normal speech, normal tone PSYCHIATRIC: Normal affect, normal mood. SKIN: No ulcerations ASSESSMENT/PLAN Assessment/Plan Pt is a 38yo AAF admitted for intractable back pain with constant numbness in right toes 3-5 1)Lumbago with sciatica- pain improved with IV Pain medication. CT shows protrusion eccentric to right lateral recess at L5-S1 contacting descending right S1 nerve root. Numbness is constant in right 3 toes, has weakness in right ankle. Pain mgmt consulted, PT/OT consulted 2)Leukocytosis- pt recently treated with steroid in ER, improving. Afebrile and no symptoms of infection 3)Anemia- mild, no active bleeding 4)Thrombocytosis- likely 2/2 steroids and stress reaction, improving 5)DM2- previously well controlled, currently exacerbated by steroids. Pt continued on Metformin 500mg qday. HbA1C 6 6)Abnormal U/A- likely just not clean catch. Pt asymptomatic. Urine cx <10k COMMENT Lab Laboratory Tests Test 04/22/19 16:51 04/22/19 21:07 04/23/19 04:55 04/23/19 07:40 Glucose (Fingerstick) 114 mg/dL (70-99) 127 mg/dL (70-99) 101 mg/dL (70-99) White Blood Count 11.8 x10^3/uL (4.0-11.0) Red Blood Count 5.01 x10^6/uL (3.50-5.40) Hemoglobin 12.4 g/dL (12.0-15.5) Hematocrit 37.6 % (36.0-47.0) Mean Corpuscular Volume 75 fL (79-100) Mean Corpuscular Hemoglobin 25 pg (25-35) Mean Corpuscular Hemoglobin Concent 33 g/dL (31-37) Red Cell Distribution Width 19.6 % (11.5-14.5) Platelet Count 406 x10^3/uL (140-400) Neutrophils (%) (Auto) 56 % (31-73) Lymphocytes (%) (Auto) 33 % (24-48) Monocytes (%) (Auto) 9 % (0-9) Eosinophils (%) (Auto) 2 % (0-3) Basophils (%) (Auto) 1 % (0-3) Neutrophils # (Auto) 6.6 x10^3uL (1.8-7.7) Lymphocytes # (Auto) 3.9 x10^3/uL (1.0-4.8) Monocytes # (Auto) 1.1 x10^3/uL (0.0-1.1) Eosinophils # (Auto) 0.3 x10^3/uL (0.0-0.7) Basophils # (Auto) 0.1 x10^3/uL (0.0-0.2) DAVE ESPINOSA MD Apr 23, 2019 11:36
[2019-04-23] MEDS ORDERED: METHYLNALTREXONE 12 MG/0.6 ML VIAL. SQ ONE (12:00)
[2019-04-23 15:00] VITALS: BP 127/78
[2019-04-23 19:47] VITALS: BP 128/86
[2019-04-23 23:19] VITALS: BP 121/82
[2019-04-24] MEDS: MORPHINE SULFATE 2 MG/ML VIAL. IV PRN ×3 (00:14→16:49)
--- NOTE | 2019-04-24 01:04 | CONS ---
DATE OF CONSULTATION: 04/23/2019 REASON FOR CONSULTATION: Back and leg pain. HISTORY OF PRESENT ILLNESS: The patient is a pleasant 38-year-old who gives a 6-week history of problems with lower back pain. She said that then beginning much more recently she developed pain, which would radiate into her buttock, posterior thigh and leg to her right foot. She notes numbness in the lateral side of her right foot. The pain became more and more severe and she came to the Emergency Room for further evaluation and treatment. There is no problem on the right side. 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 She has never had a similar problem. She has had no conservative measures for this. PAST MEDICAL HISTORY: She does have a history of problems with diabetes. PAST SURGICAL HISTORY: Negative. CURRENT MEDICATIONS: She takes metformin. Reviewed on MRAD. ALLERGIES: She denies any allergies to medications. FAMILY HISTORY: Diabetes and hypertension. PERSONAL HISTORY: She does not smoke or drink alcohol. REVIEW OF SYSTEMS: A 12 points was performed and other than outlined above was negative. PHYSICAL EXAMINATION: GENERAL: She is pleasant, alert, cooperative, no distress, in bed. Examination of lumbar spine, there was no significant tenderness of lower lumbar spine in the midline adjacent paraspinal regions. NEUROLOGIC: Her strength is 5/5. On sensory examination, there is decrease in light touch along the lateral aspect of her right foot. Straight leg raising is negative on the left. Straight leg raising on the right side associated with back, right posterior thigh, posterior leg pain relieved by Lasegue maneuver. There was full range of motion upper and lower extremities bilaterally. IMAGING: I reviewed an MRI of the lumbar spine as well as a CT scan from the study. There is a focal disc herniation on the right side at L5-S1. She does have a disc herniation with associated nerve root compression L5-S1 on the right, which I believe is the source of her pain. At this point, she should receive conservative treatment into this and she is going to be seeing the pain clinic for epidural steroid injection early this week. I explained to her that if she does not respond to conservative measures and the pain continues or worsens or if she develops weakness, surgery could be considered. I do appreciate you asking me to see her. JOCELYN RASHID MD DR: HAI/tiffany JOB#: [id number] / [id number] ROSSI
[2019-04-24 03:50] VITALS: BP 124/52
[2019-04-24] MEDS: oxyCODONE/APAP 5/325 1 TAB TABLET PO PRN (05:44)
[2019-04-24 06:04] LABS: BASO # 0.1 x10^3/uL (0.0-0.2); BASO % 1 % (0-3); EOS # 0.4 x10^3/uL (0.0-0.7); EOS % 3 % (0-3); HEMATOCRIT 38.3 % (36.0-47.0); HEMOGLOBIN 12.5 g/dL (12.0-15.5); LYMPH # 2.9 x10^3/uL (1.0-4.8); LYMPH % 22 % (24-48); MEAN CORPUSCULAR HEMOGLOBIN 25 pg (25-35); MEAN CORPUSCULAR HGB CONC 33 g/dL (31-37); MEAN CORPUSCULAR VOLUME 76 fL (79-100); MONO # 1.1 x10^3/uL (0.0-1.1); MONO % 8 % (0-9); NEUT % 67 % (31-73); PLATELET COUNT 428 x10^3/uL (140-400); RED BLOOD COUNT 5.06 x10^6/uL (3.50-5.40); RED CELL DISTRIBUTION WIDTH 19.8 % (11.5-14.5); WHITE BLOOD COUNT 13.4 x10^3/uL (4.0-11.0)
[2019-04-24 07:36] VITALS: BP 127/78
--- NOTE | 2019-04-24 08:09 | PDOC ---
SUBJECTIVE Subjective Pt states that pain flared up last night. Discussed plan of having pain m anagement see her to get epidural injection scheduled, getting started on outpatient physical therapy, and having pt talk to her work about any short term benefits patient may have. Still has numbness in toes. Groin pain worsened when back pain worsened. OBJECTIVE Vital Signs Vital Signs Date Time Temp Pulse Resp B/P (MAP) Pulse Ox O2 Delivery O2 Flow Rate FiO2 04/24/19 07:36 98.3 98 20 127/78 (94) 100 Room Air 98.3 04/24/19 06:44 Room Air 04/24/19 05:44 Room Air 04/24/19 03:50 97.8 89 20 124/52 (76) 99 Room Air 97.8 04/24/19 00:44 Room Air 04/24/19 00:14 Room Air 04/23/19 23:19 97.5 84 20 121/82 (95) 100 Room Air 97.5 04/23/19 20:00 Room Air 04/23/19 19:47 98.2 89 20 128/86 (100) 98 Room Air 98.2 04/23/19 19:33 Room Air 04/23/19 15:00 98.1 96 14 127/78 (94) 100 Room Air 98.1 04/23/19 13:49 20 04/23/19 12:49 Room Air 04/23/19 11:00 98.4 89 12 118/73 (88) 99 Room Air 98.4 I & O Intake and Output 04/24/19 06:59 Intake Total 500 ml Balance 500 ml Intake Oral 500 ml # Voids 3 PHYSICAL EXAM Physical Exam GEN.: No apparent distress. Alert and oriented. HEENT: Head is normocephalic, atraumatic NECK: Supple. LUNGS: Clear to auscultation. HEART: RRR, S1, S2 present. Peripheral pulses intact ABDOMEN: Soft, mild RLQ tenderness. Positive bowel sounds. EXTREMITIES: Without any cyanosis. NEUROLOGIC: Normal speech, normal tone PSYCHIATRIC: Normal affect, normal mood. SKIN: No ulcerations ASSESSMENT/PLAN Assessment/Plan Pt is a 38yo AAF admitted for intractable back pain with constant numbness in right toes 3-5 1)Lumbago with sciatica- pain improved with IV Pain medication. CT shows protrusion eccentric to right lateral recess at L5-S1 contacting descending right S1 nerve root. Numbness is constant in right 3 toes, has weakness in right ankle. Hopeful discharge today after pain mgmt has seen. Discussed bed bug exterminator plan with patient. 2)Leukocytosis- pt recently treated with steroid in ER previously with contribution from stress reaction. Afebrile and no symptoms of infection 3)Anemia- mild, no active bleeding 4)Thrombocytosis- likely 2/2 steroids and stress reaction 5)DM2- previously well controlled, currently exacerbated by steroids. Pt continued on Metformin 500mg qday. HbA1C 6 6)Abnormal U/A- likely just not clean catch. Pt asymptomatic. Urine cx <10k COMMENT Lab Laboratory Tests Test 04/24/19 04:30 White Blood Count 13.4 x10^3/uL (4.0-11.0) Red Blood Count 5.06 x10^6/uL (3.50-5.40) Hemoglobin 12.5 g/dL (12.0-15.5) Hematocrit 38.3 % (36.0-47.0) Mean Corpuscular Volume 76 fL (79-100) Mean Corpuscular Hemoglobin 25 pg (25-35) Mean Corpuscular Hemoglobin Concent 33 g/dL (31-37) Red Cell Distribution Width 19.8 % (11.5-14.5) Platelet Count 428 x10^3/uL (140-400) Neutrophils (%) (Auto) 67 % (31-73) Lymphocytes (%) (Auto) 22 % (24-48) Monocytes (%) (Auto) 8 % (0-9) Eosinophils (%) (Auto) 3 % (0-3) Basophils (%) (Auto) 1 % (0-3) Neutrophils # (Auto) 9.0 x10^3uL (1.8-7.7) Lymphocytes # (Auto) 2.9 x10^3/uL (1.0-4.8) Monocytes # (Auto) 1.1 x10^3/uL (0.0-1.1) Eosinophils # (Auto) 0.4 x10^3/uL (0.0-0.7) Basophils # (Auto) 0.1 x10^3/uL (0.0-0.2) DAVE ESPINOSA MD Apr 24, 2019 08:09
[2019-04-24] MEDS ORDERED: SENN-87 PO (08:14)
[2019-04-24] MEDS: DICLOFENAC SODIUM 25 MG TABLET.DR PO SCH (08:50)
[2019-04-24] MEDS: SENNOSIDES 8.6 MG TABLET PO SCH (08:50)
[2019-04-24] MEDS ORDERED: metFORMIN 500 MG TABLET PO SCH (09:00)
--- NOTE | 2019-04-24 09:23 | NUR ---
SW following for discharge planning. Discussed with RN, pt is from home. RN advised no SW needs and anticipates pt could discharge home with self care if pain is under control.
[2019-04-24] MEDS ORDERED: methylPREDNISolone ACETATE 40 MG/ML VIAL. ONE (09:56)
[2019-04-24] MEDS ORDERED: methylPREDNISolone ACETATE 80 MG/ML VIAL. ONE (09:56)
[2019-04-24] MEDS ORDERED: IOHEXOL 180 MG/ML 10 ML VIAL. ONE (09:56)
[2019-04-24 11:09] VITALS: BP 152/83
--- NOTE | 2019-04-24 12:12 | RAD ---
MRI of the lumbar spine without contrast 04/23/2019 CLINICAL HISTORY: Low back pain which radiates down the right leg. TECHNIQUE: Unenhanced T1-weighted and T2-weighted sagittal and axial and inversion recovery sagittal images of the lumbar spine were obtained. FINDINGS: Comparison is made to a CT scan of the lumbar spine dated 04/21/2019. Minimal S-shaped curvature of the thoracolumbar spine is seen. Degenerative signal changes and loss of height are seen involving the L5-S1 disc. Degenerative signal changes are seen within the marrow surrounding this disc. The conus medullaris is normal morphology, position, and signal characteristics. The L1-2, L2-3 and L3-4 disc spaces are within normal limits. At the L4-5 disc space there is a minimal generalized disc bulge. Degenerative changes are seen involving the facet joints bilaterally. There is mild to moderate ligament flavum hypertrophy bilaterally. There are small facet joint effusions bilaterally. These findings do not result in significant central spinal canal or neural foraminal stenosis. At the L5-S1 disc space there is a mild generalized disc bulge. Superimposed on this disc bulge is a central/right paracentral focal disc herniation which extrudes inferiorly and laterally to the right. This disc herniation measures 1.7 x 1.3 x 0.9 cm in craniocaudal, transverse and AP dimensions. Degenerative changes are seen involving the facet joints bilaterally. There is mild ligamentum flavum hypertrophy bilaterally. These findings when combined result in severe right-sided central spinal canal stenosis. The disc herniation impinges upon the right S1 nerve root within the right lateral aspect of the central spinal canal. No neural foraminal stenosis is seen. IMPRESSION: The changes of degenerative disc disease are seen involving the lower lumbar spine. At the L5-S1 disc space a central/right paracentral focal disc herniation is seen which extrudes inferiorly and laterally to the right. This results in severe right-sided central spinal canal stenosis and impinges upon the right S1 nerve root within the right lateral aspect of the central spinal canal. Electronically signed by: Damaso Floyd MD (04/24/2019 12:10 PM) [id number]
--- NOTE | 2019-04-24 13:17 | PDOC ---
SUBJECTIVE Subjective low back and right leg pain for two months OBJECTIVE Objective 38 yo female with 2 month history low back and right lE pain, which would radiate into her buttock, posterior thigh and leg to her right foot. She notes numbness in the lateral side of her right foot. The pain became more and more severe and she came to the Emergency Room for further evaluation and treatment. There is no problem on the left side. 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 She has had no conservative measures for this. Vital Signs Vital Signs Date Time Temp Pulse Resp B/P (MAP) Pulse Ox O2 Delivery O2 Flow Rate FiO2 04/24/19 11:09 97.5 82 20 152/83 (106) 100 Room Air 97.5 04/24/19 10:40 18 100 Room Air 04/24/19 08:00 Room Air 04/24/19 07:36 98.3 98 20 127/78 (94) 100 Room Air 98.3 04/24/19 06:44 Room Air 04/24/19 05:44 Room Air 04/24/19 03:50 97.8 89 20 124/52 (76) 99 Room Air 97.8 04/24/19 00:44 Room Air 04/24/19 00:14 Room Air 04/23/19 23:19 97.5 84 20 121/82 (95) 100 Room Air 97.5 04/23/19 20:00 Room Air 04/23/19 19:47 98.2 89 20 128/86 (100) 98 Room Air 98.2 04/23/19 19:33 Room Air 04/23/19 15:00 98.1 96 14 127/78 (94) 100 Room Air 98.1 04/23/19 13:49 20 I & O Intake and Output 04/24/19 06:59 Intake Total 500 ml Balance 500 ml Intake Oral 500 ml # Voids 3 PHYSICAL EXAM Physical Exam A&O, HEENT = ncat BS+cta bilat Heart S1,S2 clear LE's DTR's= 2/4 bilat, Motor 4/5 rt, 5/5 lt Back FROM L spine ASSESSMENT/PLAN Assessment/Plan Plan= LESI today F/U as Op COMMENT Lab Laboratory Tests Test 04/24/19 04:30 White Blood Count 13.4 x10^3/uL (4.0-11.0) Red Blood Count 5.06 x10^6/uL (3.50-5.40) Hemoglobin 12.5 g/dL (12.0-15.5) Hematocrit 38.3 % (36.0-47.0) Mean Corpuscular Volume 76 fL (79-100) Mean Corpuscular Hemoglobin 25 pg (25-35) Mean Corpuscular Hemoglobin Concent 33 g/dL (31-37) Red Cell Distribution Width 19.8 % (11.5-14.5) Platelet Count 428 x10^3/uL (140-400) Neutrophils (%) (Auto) 67 % (31-73) Lymphocytes (%) (Auto) 22 % (24-48) Monocytes (%) (Auto) 8 % (0-9) Eosinophils (%) (Auto) 3 % (0-3) Basophils (%) (Auto) 1 % (0-3) Neutrophils # (Auto) 9.0 x10^3uL (1.8-7.7) Lymphocytes # (Auto) 2.9 x10^3/uL (1.0-4.8) Monocytes # (Auto) 1.1 x10^3/uL (0.0-1.1) Eosinophils # (Auto) 0.4 x10^3/uL (0.0-0.7) Basophils # (Auto) 0.1 x10^3/uL (0.0-0.2) ED RUFF MD Apr 24, 2019 13:17
[2019-04-24 15:00] VITALS: BP 130/81
--- NOTE | 2019-04-24 16:45 | PDOC3 ---
Discharge Summary FINAL DIAGNOSIS Problems Medical Problems: (1) Sciatica of right side Status: Acute Brief Hospital Course Ms. Mukherjee is a 38 old [sex] who presented with [ ] Discharge Medications Current Medications Ketorolac Tromethamine (Toradol 30mg Vial) 30 mg 1X ONCE IV Last administered on 04/21/19at 13:17; Start 04/21/19 at 12:45; Stop 04/21/19 at 12:46; Status DC Morphine Sulfate (Morphine Sulfate) 2 mg PRN Q2HR PRN IV PAIN Last administered on 04/24/19at 10:40; Start 04/21/19 at 16:45 Oxycodone/ Acetaminophen (Percocet 5/325) 1 tab PRN Q6HRS PRN PO PAIN Last administered on 04/24/19at 05:44; Start 04/21/19 at 16:45 Cyclobenzaprine HCl (Flexeril) 5 mg PRN TID PRN PO muscle spasm Last administered on 04/23/19at 20:26; Start 04/21/19 at 16:45 Diclofenac Sodium (Voltaren) 50 mg BID PO Last administered on 04/24/19at 08:50; Start 04/21/19 at 21:00 Metformin HCl (Glucophage) 500 mg BIDWMEALS PO Last administered on 04/23/19at 07:49; Start 04/21/19 at 17:00; Stop 04/23/19 at 11:34; Status DC Sennosides (Senna) 8.6 mg PRN BID PRN PO CONSTIPATION; Start 04/21/19 at 16:45; Stop 04/22/19 at 10:22; Status DC Sennosides (Senna) 8.6 mg BID PO Last administered on 04/24/19at 08:50; Start 04/22/19 at 11:00 Methylnaltrexone Waggoner (Relistor) 12 mg 1X ONCE SQ ; Start 04/23/19 at 12:00; Stop 04/23/19 at 12:00; Status DC Metformin HCl (Glucophage) 500 mg DAILY PO Last administered on 04/24/19at 08:50; Start 04/24/19 at 09:00 Active Scripts Active Valium (Diazepam) 5 Mg Tablet 5 Mg PO TID Diclofenac Potassium 50 Mg Tablet 1 Tab PO BID Elizabeth 5-325 Tablet (Acetaminophen/Hydrocodone Bitart) 1 Each Tablet 1-2 Each PO PRN Q6HRS PRN as needed for pain Medrol (Methylprednisolone) 4 Mg Tab.ds.pk 1 Pkg PO UD Cyclobenzaprine Hcl 10 Mg Tablet 1 Tab PO TID Naproxen 500 Mg Tablet.dr 1 Tab PO BID PRN Reported Metformin Hcl 500 Mg Tablet 500 Mg PO DAILY Vital Signs Vital Signs Date Time Temp Pulse Resp B/P (MAP) Pulse Ox O2 Delivery O2 Flow Rate FiO2 04/24/19 15:00 97.9 95 20 130/81 (97) 100 Room Air 97.9 Labs Laboratory Tests Test 04/22/19 16:51 04/22/19 21:07 04/23/19 04:55 04/23/19 07:40 Glucose (Fingerstick) 114 mg/dL (70-99) 127 mg/dL (70-99) 101 mg/dL (70-99) White Blood Count 11.8 x10^3/uL (4.0-11.0) Red Blood Count 5.01 x10^6/uL (3.50-5.40) Hemoglobin 12.4 g/dL (12.0-15.5) Hematocrit 37.6 % (36.0-47.0) Mean Corpuscular Volume 75 fL (79-100) Mean Corpuscular Hemoglobin 25 pg (25-35) Mean Corpuscular Hemoglobin Concent 33 g/dL (31-37) Red Cell Distribution Width 19.6 % (11.5-14.5) Platelet Count 406 x10^3/uL (140-400) Neutrophils (%) (Auto) 56 % (31-73) Lymphocytes (%) (Auto) 33 % (24-48) Monocytes (%) (Auto) 9 % (0-9) Eosinophils (%) (Auto) 2 % (0-3) Basophils (%) (Auto) 1 % (0-3) Neutrophils # (Auto) 6.6 x10^3uL (1.8-7.7) Lymphocytes # (Auto) 3.9 x10^3/uL (1.0-4.8) Monocytes # (Auto) 1.1 x10^3/uL (0.0-1.1) Eosinophils # (Auto) 0.3 x10^3/uL (0.0-0.7) Basophils # (Auto) 0.1 x10^3/uL (0.0-0.2) Test 04/24/19 04:30 White Blood Count 13.4 x10^3/uL (4.0-11.0) Red Blood Count 5.06 x10^6/uL (3.50-5.40) Hemoglobin 12.5 g/dL (12.0-15.5) Hematocrit 38.3 % (36.0-47.0) Mean Corpuscular Volume 76 fL (79-100) Mean Corpuscular Hemoglobin 25 pg (25-35) Mean Corpuscular Hemoglobin Concent 33 g/dL (31-37) Red Cell Distribution Width 19.8 % (11.5-14.5) Platelet Count 428 x10^3/uL (140-400) Neutrophils (%) (Auto) 67 % (31-73) Lymphocytes (%) (Auto) 22 % (24-48) Monocytes (%) (Auto) 8 % (0-9) Eosinophils (%) (Auto) 3 % (0-3) Basophils (%) (Auto) 1 % (0-3) Neutrophils # (Auto) 9.0 x10^3uL (1.8-7.7) Lymphocytes # (Auto) 2.9 x10^3/uL (1.0-4.8) Monocytes # (Auto) 1.1 x10^3/uL (0.0-1.1) Eosinophils # (Auto) 0.4 x10^3/uL (0.0-0.7) Basophils # (Auto) 0.1 x10^3/uL (0.0-0.2) Laboratory Tests Test 04/24/19 04:30 White Blood Count 13.4 x10^3/uL (4.0-11.0) Red Blood Count 5.06 x10^6/uL (3.50-5.40) Hemoglobin 12.5 g/dL (12.0-15.5) Hematocrit 38.3 % (36.0-47.0) Mean Corpuscular Volume 76 fL (79-100) Mean Corpuscular Hemoglobin 25 pg (25-35) Mean Corpuscular Hemoglobin Concent 33 g/dL (31-37) Red Cell Distribution Width 19.8 % (11.5-14.5) Platelet Count 428 x10^3/uL (140-400) Neutrophils (%) (Auto) 67 % (31-73) Lymphocytes (%) (Auto) 22 % (24-48) Monocytes (%) (Auto) 8 % (0-9) Eosinophils (%) (Auto) 3 % (0-3) Basophils (%) (Auto) 1 % (0-3) Neutrophils # (Auto) 9.0 x10^3uL (1.8-7.7) Lymphocytes # (Auto) 2.9 x10^3/uL (1.0-4.8) Monocytes # (Auto) 1.1 x10^3/uL (0.0-1.1) Eosinophils # (Auto) 0.4 x10^3/uL (0.0-0.7) Basophils # (Auto) 0.1 x10^3/uL (0.0-0.2) Allergies Allergies Coded Allergies Type Severity Reaction Last Updated Verified No Known Drug Allergies 04/30/18 DAVE Morales MD Apr 24, 2019 16:45
--- NOTE | 2019-04-24 18:26 | NUR ---
Discharge Note: ISIDRA PATRICK Discharge instructions and discharge home medications reviewed with Patient and a copy given. All questions have been answered and understanding verbalized. The following instructions and handouts were given: Disscharge Instructions, Epidural Steroid Injections after care, Prescriptions Discontinued lines and drains: PIV removed, Catheter intact. Patient discharged to Home via Private Vehicle
== END 2019-04-24 17:51 | disposition home or self-care (01) | DRG 552 ==
LOC: ER 11:56 → 4 NORTH 12:01
PROVIDERS: ADMIT Family Medicine; ATTEND Family Medicine
DX: M54.41 Lumbago with sciatica, right side (principal); E11.9 Type 2 diabetes mellitus without complications; K59.00 Constipation, unspecified; Z82.49 Family history of ischemic heart disease and other diseases of the circulatory system; Z83.3 Family history of diabetes mellitus; D72.829 Elevated white blood cell count, unspecified; Z79.84 Long term (current) use of oral hypoglycemic drugs; T38.0X5A Adverse effect of glucocorticoids and synthetic analogues, initial encounter
CPT/HCPCS: 36415; 62323; 72131; 72148; 80053; 81001; 81025; 82962; 83036; 85007; 85025; 87086; J1030; J1040; J1885; J2270; Q9965; 99285-25

== ENCOUNTER → 2019-06-15 | Outpatient (CLI) | payer OTHER ==
[~2019-06-15] MED LIST changes: +METF500T16 PO; +SENN-87 PO
--- NOTE | 2019-06-16 00:28 | PAIN ---
DATE OF SERVICE: 06/15/2019 PROGRESS NOTE FOR PAIN CLINIC DIAGNOSIS: Lumbar radiculopathy with lumbar degenerative disk disease. HISTORY OF PRESENT ILLNESS: The patient is a 38-year-old female who returns for followup status post lumbar epidural steroid injection x 1 as an inpatient on 04/24/2019. The patient did very well, reports about a 75% improvement initially, now about 50% improvement over the past few weeks. The patient reports a good 4-5 weeks of decreased pain significantly in the low back and right lower extremity. The patient reports it is returning now in the posterior gluteus, posterior thigh, radiating to the lower extremity in the lower calf. The patient reports a tingling, aching and shooting at times. The patient reports it is a 4 on a scale of 10 at all times, though its worst, is average and at its least and is a 4 today. The patient reports no new motor or sensory deficits and no new bowel or bladder incontinence or other complaints. The patient reports she was increasing distance walking, doing work activities, household activities trial with greater ease and comfort, sleeping much better, does not awaken her from sleep currently. The patient reports no new motor or sensory deficits and no bowel or bladder incontinence. PHYSICAL EXAMINATION: VITAL SIGNS: The patient's blood pressure is 130/82, pulse 87, respirations 18 and temperature is 98.5 degrees Fahrenheit. Height is 5 feet 1 inch and weight is 121 pounds. GENERAL: The patient is awake, alert, oriented, appropriate and very pleasant demeanor. HEENT: Head shows normocephalic and atraumatic. Extraocular movements are intact and symmetrical. Oral cavity: Mucous membranes moist and pink. Dentition is intact. NECK: Shows anterior throat supple without palpable lymphadenopathy noted. Swallow reflex symmetrical. CHEST: Shows normal on inspection. Breath sounds clear to auscultation bilaterally. HEART: Shows S1 and S2 clear. No murmurs auscultated. ABDOMEN: Soft, nontender and nondistended. No palpable organomegaly is noted. No rebound or guarding demonstrated. BACK: Shows spine grossly in the midline. Normal appearing thoracic kyphosis and lumbar lordotic curvature. Lumbar paraspinous muscle shows symmetrical on inspection, on palpation shows some moderate tenderness diffusely in the low lumbar distribution but only diffusely without radiation. The patient has good rotational motion of the lumbar spine, both laterally as well as extension and flexion without difficulty. EXTREMITIES: Lower extremities show deep tendon reflexes 2+ in the patellar, 1+ tendo-calcaneus tendons. Motor exam is approximately 4 on a scale 5 on the right, 5/5 on the left. Peripheral pulses are 1+ posterior tibial. No peripheral edema is noted. Options were discussed with the patient. The patient's old chart was reviewed as well as her current medication regimen updated. Current review of systems updated today as well. We will preauthorize the patient for a second lumbar epidural steroid injection. She did very well after the first injection, now pain is returning, but still about 50% improvement overall in the low back, right lower extremity in a radicular pattern and L5-S1 dermatomal distribution. We will preauthorize the patient for a L5-S1 level translaminar epidural steroid injection. The patient will continue doing stretching and strengthening exercises on her own, continue walking daily as tolerated and will follow up after preauthorization is obtained. ED RUFF MD DR: ELLE/tiffany JOB#: [id number] / [id number]
== END | disposition home or self-care (01) ==
LOC: PNCL 09:03
PROVIDERS: ATTEND Anesthesiology
DX: M51.16 Intervertebral disc disorders with radiculopathy, lumbar region (principal)
CPT/HCPCS: G0463

== ENCOUNTER → 2019-06-29 | Outpatient (CLI) | payer OTHER ==
[~2019-06-29] MED LIST changes: +IOHEXOL 180 MG/ML 10 ML VIAL. ONE; +methylPREDNISolone ACETATE 40 MG/ML VIAL. ONE
--- NOTE | 2019-06-29 22:03 | PAIN ---
DATE OF SERVICE: 06/29/2019 PROGRESS NOTE FOR PAIN CLINIC DIAGNOSES: Lumbar radiculopathy with lumbar degenerative disk disease. HISTORY OF PRESENT ILLNESS: The patient is a 38-year-old female who returns for followup status post lumbar epidural steroid injection x 1 as inpatient. The patient did very well with about 50% improvement. The patient reports still some pain in low back, right lower extremity, posterior gluteus, posterior thigh, posterior calf, radiating in a radicular fashion, tingling and aching at times in the back as well. The patient reports it is a 5 on a scale of 10 at all times, worst, average and at its least and is a 5 today. The patient reports no new motor or sensory deficits, no new bowel or bladder incontinence, better with sitting or lying down, does not awaken her from sleep at night. PHYSICAL EXAMINATION: VITAL SIGNS: The patient's blood pressure 138/81, pulse 81, respirations 18, temperature 98.2 degrees Fahrenheit, height is 5 feet 1 inch, weight is 122 pounds. GENERAL: The patient is awake, alert, oriented, appropriate, very pleasant demeanor. HEENT: Head is normocephalic and atraumatic. Extraocular movements are intact and symmetrical. Oral cavity: Mucous membranes moist and pink. Dentition is intact. NECK: Shows anterior throat supple without palpable lymphadenopathy noted. Swallow reflex symmetrical. CHEST: Shows normal on inspection. Breath sounds are clear to auscultation bilaterally. HEART: Shows S1, S2 clear. No murmurs auscultated. ABDOMEN: Soft, nontender, nondistended. No palpable organomegaly is noted. No rebound or guarding demonstrated. BACK: Shows spine grossly in the midline. Normal appearing thoracic kyphosis and lumbar lordotic curvature. Lumbar paraspinous muscle shows symmetrical on inspection. On palpation, some moderate tenderness diffusely, but only diffusely bilaterally without radiation. The patient has good rotational motion of lumbar spine as well as extension and flexion without difficulty. EXTREMITIES: The patient's lower extremities show deep tendon reflexes 2+ in the patellar, 1+ tendo-calcaneus tendons. Motor exam is approximately 4 on a scale of 5 on the right and 5/5 on the left dorsiflexion, extension, quadriceps and hamstring flexion. Peripheral pulses are 1+ posterior tibia. No peripheral edema is noted. Options were discussed with the patient. The patient's old chart was reviewed as her current medication regimen updated. Current review of systems updated today as well. We will proceed with second in the series of lumbar epidural steroid injection today with fluoroscopic guidance. Risks were again discussed including, but not limited to bleeding, infection, possibility of epidural hematoma and subsequent neurological compromise, dural puncture, headaches, spinal cord and/or nerve damage, side effects of steroid medication and poor results regarding pain control. The patient understands and wished to proceed. The patient will return to clinic in approximately 2 weeks for followup. She was counseled as to return, activity level and side effects to be aware of. DIAGNOSES: Lumbar radiculopathy with lumbar degenerative disk. PROCEDURE: Lumbar epidural steroid injection, translaminar approach, L5-S1 level using C-arm fluoroscopic guidance under sterile prep and drape using local anesthetic. MEDICATION INJECTED: A total of 120 mg Depo-Medrol plus 10 mL of preservative-free normal saline and 2 mL of contrast. CONDITION AT DISCHARGE: Stable. The patient tolerated the procedure well, had no complications. ED RUFF MD DR: ELLE/tiffany JOB#: [id number] / [id number]
== END ==
LOC: PNCL 09:22
PROVIDERS: ATTEND Anesthesiology
DX: M51.16 Intervertebral disc disorders with radiculopathy, lumbar region (principal)
CPT/HCPCS: 62323; J1030; Q9965

== ENCOUNTER → 2019-07-20 | Outpatient (CLI) | payer OTHER ==
[~2019-07-20] MED LIST changes: -IOHEXOL 180 MG/ML 10 ML VIAL. ONE; -methylPREDNISolone ACETATE 40 MG/ML VIAL. ONE
--- NOTE | 2019-07-20 21:48 | PAIN ---
DATE OF SERVICE: 07/20/2019 PROGRESS NOTE FOR PAIN CLINIC DIAGNOSES: Lumbar radiculopathy with lumbar degenerative disk disease. HISTORY OF PRESENT ILLNESS: The patient is a 38-year-old female who returns for followup status post lumbar epidural steroid injection x 2. The patient reports about 80% improvement for the past 4 weeks. The patient has been doing very well. She is quite pleased with her progress, increasing her activity with greater ease and comfort, walking greater distances, doing work activities, household activities, traveling with greater ease. The patient reports still some pain in the low back and right lower extremity, posterior gluteus, radiating to posterior thigh and calf at times, but much improved. The patient reports it is a 3 on a scale of 10 at all times, average, worst and least over the past week and is a 3 today. The patient reports it is aching and shooting, sharp at times, but dull most of the time and again significantly improved. The patient is quite pleased with her progress, has no new motor or sensory deficits, no new bowel or bladder incontinence. She is sleeping better at night, does not awaken her from sleep. The patient reports still some radicular pain; however, at L5-S1 dermatomal distribution on the right side. PHYSICAL EXAMINATION: VITAL SIGNS: The patient's blood pressure 129/78, pulse 81, respirations are 18, temperature 98.3 degrees Fahrenheit, height is 5 feet 1 inch, weight is 120 pounds. GENERAL: The patient is awake, alert, oriented, appropriate, very pleasant demeanor. HEENT: Head shows normocephalic, atraumatic. Extraocular movements are intact and symmetrical. Oral cavity: Mucous membranes moist and pink. Dentition is intact. NECK: Shows anterior throat supple without palpable lymphadenopathy noted. Swallow reflex symmetrical. CHEST: Shows normal on inspection. Breath sounds clear to auscultation bilaterally. HEART: Shows S1, S2 clear. No murmurs auscultated. ABDOMEN: Soft, nontender, nondistended. No palpable organomegaly is noted. No rebound or guarding demonstrated. BACK: Shows spine grossly in the midline. Normal appearing thoracic kyphosis and lumbar lordotic curvature. Lumbar paraspinous muscle shows symmetrical on inspection, on palpation shows some moderate tenderness diffusely, but only diffusely without significant radiation. EXTREMITIES: The patient's lower extremities show deep tendon reflexes at 2+ in the patellar, 1+ tendo-calcaneus tendons. Motor exam is approximately 4 on a scale of 5 with right dorsiflexion, extension, 5/5 with left. Peripheral pulses present. Quadriceps and hamstring flexion is 5/5 equal bilaterally. Peripheral pulses are 1+ posterior tibia. No peripheral edema is noted. The patient does have some very mild straight leg raise positive on the right side at about 45 degrees, but decreased quickly with knee flexion and relieved. Left side is negative. The patient is able to stand, stand on her toes, walks with a normal gait, does not appear to favor the right or left lower extremity significantly, not using any assistive device to ambulate. Options were discussed with the patient. The patient's old chart was reviewed as her current medication regimen updated. Current review of systems updated today as well. We will proceed with preapproval for a third lumbar epidural steroid injections. He has done very well with last injection about 80% improvement, still with some radicular pain in an L5-S1 dermatomal distribution on the right. I will plan on bilateral L5-S1 translaminar injection on return. The patient will continue stretching and strengthening exercises as she has been doing on her own. Continue with activity as tolerated, walking as tolerated daily as well. ED RUFF MD DR: ELLE/tiffany JOB#: [id number] / [id number]
== END | disposition home or self-care (01) ==
LOC: PNCL 09:05
PROVIDERS: ATTEND Anesthesiology
DX: M51.16 Intervertebral disc disorders with radiculopathy, lumbar region (principal)
CPT/HCPCS: G0463

== ENCOUNTER 2019-09-02 17:36 | Emergency (ER) | payer OTHER ==
[~2019-09-02] VITALS: Ht 154.9 cm; Wt 53.1 kg
[2019-09-02 17:53] VITALS: BP 191/108
--- NOTE | 2019-09-02 18:34 | PHYS DOC ---
Past Medical History Past Medical History: Diabetes-Type II, Other Additional Past Medical Histor: SICKLE CELL TRAIT Past Surgical History: No Surgical History Alcohol Use: None Drug Use: None Adult General Chief Complaint Chief Complaint: LOWER EXT PAIN HPI HPI Patient is a 38 year old female who presents to the emergency room for back pain that radiates down the right leg has been ongoing for 6 months. She states that her pain is 10 out of 10 in severity and that she usually takes hydrocodone for her pain. The patient states that she ran out of her last hydrocodone at 11 AM. The patient states that Dr. Falcon was her primary care doctor but she's not yet seen Dr. Hoskins who she supposed to go see. It's a muscle relaxers do not help that she scheduled to have a surgery done by Dr. Barboza on Wednesday for her back pain. Review of Systems Review of Systems Constitutional: Denies fever or chills [] Eyes: Denies change in visual acuity, redness, or eye pain [] HENT: Denies nasal congestion or sore throat [] Respiratory: Denies cough or shortness of breath [] Cardiovascular: No additional information not addressed in HPI [] GI: Denies abdominal pain, nausea, vomiting, bloody stools or diarrhea [] : Denies dysuria or hematuria [] Musculoskeletal: Reports back pain radiating down the left leg. Integument: Denies rash or skin lesions [] Neurologic: Denies headache, focal weakness or sensory changes [] Endocrine: Denies polyuria or polydipsia [] Complete systems were reviewed and found to be within normal limits, except as documented in this note. Allergies Allergies Allergies Coded Allergies Type Severity Reaction Last Updated Verified No Known Drug Allergies 04/30/18 No Physical Exam Physical Exam Constitutional: Well developed, well nourished, no acute distress, non-toxic appearance. [] HENT: Normocephalic, atraumatic, bilateral external ears normal, oropharynx moist, no oral exudates, nose normal. [] Eyes: PERRLA, EOMI, conjunctiva normal, no discharge. [] Neck: Normal range of motion, no tenderness, supple, no stridor. [] Skin: Warm, dry, no erythema, no rash. [] Back: Tenderness to midline of back. Extremities: No tenderness, no cyanosis, no clubbing, ROM intact, no edema. [] Neurologic: Alert and oriented X 3, normal motor function, normal sensory function, no focal deficits noted. [] Psychologic: Affect normal, judgement normal, mood normal. [] Current Patient Data Vital Signs Vital Signs Date Time Temp Pulse Resp B/P (MAP) Pulse Ox O2 Delivery O2 Flow Rate FiO2 09/02/19 17:53 98.6 117 17 191/108 (135) 100 Room Air 98.6 EKG EKG [] Radiology/Procedures Radiology/Procedures [] Course & Med Decision Making Course & Med Decision Making Pertinent Labs and Imaging studies reviewed. (See chart for details) Discussed with patient that I will review her KTRACs and make decisions based on what I see. Patient states she has not yet seen Dr. Hoskins Reviewed KTRAC report and patient had a 15 day supply of Cowen written by Dr. Hoskins on July 27 and a 30 day supply that was written on 08/14. It appears that patient is misleading me based on what she told me and that she has already gone through a 30 day supply of Cowen. Will d/c home without giving pain medication due to this and will refer back to Dr. Hoskins. Dragon Disclaimer Dragon Disclaimer This electronic medical record was generated, in whole or in part, using a voice recognition dictation system. Departure Departure Impression: Primary Impression: Sciatica of right side Additional Impression: Drug-seeking behavior Disposition: 01 HOME, SELF-CARE Condition: STABLE Referrals: DAVE FALCON MD (PCP) Patient Instructions: Sciatica Additional Instructions: Thank you for visiting [facility]. We appreciate you trusting us with your care. If any additional problems come up don't hesitate to return to visit us. Please follow up with your primary care provider so they can plan additional care if needed and know about the problem that you had. If symptoms worsen come back to the Emergency Department. Any concerning symptoms that start such as chest pain, shortness of air, weakness or numbness on one side of the body, running high fevers or any other concerning symptoms return to the ER. Problem Qualifiers STACY VASQUEZ APRN Sep 02, 2019 18:34
== END 2019-09-02 18:37 | disposition home or self-care (01) ==
LOC: ER 17:36
DX: M54.31 Sciatica, right side (principal); Z76.5 Malingerer [conscious simulation]; E11.9 Type 2 diabetes mellitus without complications
CPT/HCPCS: 99281